=== PATIENT | female | born 1980 | race American Indian/Alaskan Native ===

== ENCOUNTER 2017-04-18 02:48 | Inpatient (IN) | payer OTHER ==
[2017-04-18] MEDS ORDERED: CATAPRES PO ONE (03:17)
[2017-04-18] MEDS ORDERED: ZOFRAN ODT PO ONE (03:17)
[2017-04-18] MEDS ORDERED: NORCO 10/325 PO ONE (03:18)
[2017-04-18 03:34] LABS: Basophils % (Auto) 0.5 % (0.0-1.8); Hematocrit 41.2 % (30.3-42.9); Hemoglobin 13.8 gm/dl (10.1-14.3); Mean Corpuscular HGB Conc 34 % (30-34); Mean Corpuscular Hemoglobin 30 pg (28-32); Mean Corpuscular Volume 89 fl (79-97); Platelet Count 222 K/mm3 (140-440); Red Blood Count 4.62 M/mm3 (3.65-5.03); Red Cell Distribution Width 13.7 % (13.2-15.2); White Blood Count 10.4 K/mm3 (4.5-11.0)
[2017-04-18 04:03] LABS: Anion Gap 22 mmol/L; BUN/Creatinine Ratio 16.66; Blood Urea Nitrogen 10 mg/dL (7-17); Carbon Dioxide 22 mmol/L (22-30); Chloride 96.8 mmol/L (98-107); Glucose 178 mg/dL (65-100); Potassium 3.7 mmol/L (3.6-5.0); Sodium 137 mmol/L (137-145)
[2017-04-18 04:26] LABS: Bacteria,Urine 1+ /HPF (Negative); Bilirubin,Urine NEG (Negative); Blood,Urine NEG (Negative); Ketones,Urine 80 mg/dL (Negative); Leukocyte Esterase,Urine MOD (Negative); Mucus,Urine FEW /HPF; Nitrite,Urine NEG (Negative); Protein,Urine <15 mg/dL mg/dL (Negative); Urobilinogen,Urine < 2.0 mg/dL (<2.0)
--- NOTE | 2017-04-18 08:33 | Emergency Department Report ---
ED Abdominal Pain HPI - General Chief Complaint: Abdominal Pain Stated Complaint: ABD PAIN Time Seen by Provider: 04/18/17 07:52 Source: patient Mode of arrival: Ambulatory Limitations: No Limitations - History of Present Illness Initial Comments: 36-year-old female who presents to emergency department with diffuse abdominal pain. She's had some nausea vomiting. She states that the vomiting appears to be bilious. Pain is diffuse crampy and achy in nature. It does not radiate anywhere. She denies fevers and chills. She's never had any abdominal surgeries. MD Complaint: abdominal pain Location: diffuse, RUQ, RLQ Severity scale (0 -10): 3 Consistency: constant Improves With: nothing Worsens With: eating Associated Symptoms: nausea, vomiting - Related Data Allergies Allergy/AdvReac Type Severity Reaction Status Date / Time No Known Allergies Allergy Verified 04/18/17 07:58 ED Review of Systems ROS: Stated complaint: ABD PAIN Other details as noted in HPI Comment: All other systems reviewed and negative Constitutional: denies: chills, fever Eyes: denies: eye pain, eye discharge, vision change ENT: denies: ear pain, throat pain Respiratory: denies: cough, shortness of breath, wheezing Cardiovascular: denies: chest pain, palpitations Endocrine: no symptoms reported Gastrointestinal: abdominal pain, nausea, vomiting. denies: diarrhea Genitourinary: denies: urgency, dysuria, discharge Musculoskeletal: denies: back pain, joint swelling, arthralgia Skin: denies: rash, lesions Neurological: denies: headache, weakness, paresthesias Psychiatric: denies: anxiety, depression Hematological/Lymphatic: denies: easy bleeding, easy bruising ED Past Medical Hx - Past Medical History Previous Medical History?: No - Surgical History Past Surgical History?: No - Family History Family history: no significant - Social History Smoking Status: Current Some Day Smoker ED Physical Exam - General Limitations: No Limitations General appearance: alert, in no apparent distress - Head Head exam: Present: atraumatic, normocephalic - Eye Eye exam: Present: normal appearance - ENT ENT exam: Present: mucous membranes moist - Neck Neck exam: Present: normal inspection - Respiratory Respiratory exam: Present: normal lung sounds bilaterally. Absent: respiratory distress - Cardiovascular Cardiovascular Exam: Present: regular rate, normal rhythm. Absent: systolic murmur, diastolic murmur, rubs, gallop - GI/Abdominal GI/Abdominal exam: Present: soft, tenderness (diffuse tenderness), guarding ( mild voluntary), normal bowel sounds. Absent: rebound - Extremities Exam Extremities exam: Present: normal inspection - Back Exam Back exam: Present: normal inspection - Neurological Exam Neurological exam: Present: alert, oriented X3 - Psychiatric Psychiatric exam: Present: normal affect, normal mood - Skin Skin exam: Present: warm, dry, intact, normal color. Absent: rash ED Course Vital Signs 04/18/17 04/18/17 04/18/17 02:59 03:26 04:26 Temperature 98.2 F Pulse Rate 60 60 Respiratory 18 20 20 Rate Blood Pressure 200/118 200/118 Blood Pressure [Left] O2 Sat by Pulse 99 Oximetry 04/18/17 04/18/17 04/18/17 07:02 08:30 09:11 Temperature 98.2 F Pulse Rate 65 75 Respiratory 20 16 16 Rate Blood Pressure 147/83 Blood Pressure 204/118 [Left] O2 Sat by Pulse 98 Oximetry 04/18/17 04/18/17 04/18/17 09:41 10:00 10:27 Temperature Pulse Rate 87 Respiratory 16 16 16 Rate Blood Pressure Blood Pressure 146/80 [Left] O2 Sat by Pulse 98 98 Oximetry ED Medical Decision Making - Lab Data Result diagrams: 04/18/17 03:14 04/18/17 03:14 Laboratory Results - last 24 hr 04/18/17 04/18/17 04/18/17 03:14 03:14 03:14 WBC 10.4 RBC 4.62 Hgb 13.8 Hct 41.2 MCV 89 MCH 30 MCHC 34 RDW 13.7 Plt Count 222 Lymph % (Auto) 6.9 L [place] % (Auto) 5.2 Eos % (Auto) 0.0 Baso % (Auto) 0.5 Lymph # 0.7 L [place] # 0.5 Eos # 0.0 Baso # 0.0 Seg Neutrophils % 87.4 H Seg Neutrophils # 9.1 H Sodium 137 Potassium 3.7 Chloride 96.8 L Carbon Dioxide 22 Anion Gap 22 BUN 10 Creatinine 0.6 L Estimated GFR > 60 BUN/Creatinine Ratio 16.66 Glucose 178 H Calcium 9.0 Troponin T < 0.010 Lipase HCG, Qual Negative Urine Color Urine Turbidity Urine pH Ur Specific [place] Urine Protein Urine Glucose (UA) Urine Ketones Urine Blood Urine Nitrite Urine Bilirubin Urine Urobilinogen Ur Leukocyte Esterase Urine WBC (Auto) Urine RBC (Auto) U Epithel Cells (Auto) Urine Bacteria (Auto) Urine Mucus 04/18/17 04/18/17 04/18/17 03:14 03:50 06:55 WBC RBC Hgb Hct MCV MCH MCHC RDW Plt Count Lymph % (Auto) [place] % (Auto) Eos % (Auto) Baso % (Auto) Lymph # [place] # Eos # Baso # Seg Neutrophils % Seg Neutrophils # Sodium Potassium Chloride Carbon Dioxide Anion Gap BUN Creatinine Estimated GFR BUN/Creatinine Ratio Glucose Calcium Troponin T < 0.010 Lipase 13 HCG, Qual Urine Color Straw Urine Turbidity Clear Urine pH 7.0 Ur Specific [place] 1.016 Urine Protein <15 mg/dl Urine Glucose (UA) 50 Urine Ketones 80 Urine Blood Neg Urine Nitrite Neg Urine Bilirubin Neg Urine Urobilinogen < 2.0 Ur Leukocyte Esterase Mod Urine WBC (Auto) 1.0 Urine RBC (Auto) 2.0 U Epithel Cells (Auto) 2.0 Urine Bacteria (Auto) 1+ Urine Mucus Few - Medical Decision Making 36-year-old female presents to the emergency department with diffuse abdominal pain she is morbidly obese. Her exam demonstrated diffuse tenderness with mild voluntary guarding and no rebound. I do not believe she has a surgical abdomen. Her labs are unremarkable this point. Plan is CT given the nature of her pain and the type of her vomiting. Plan to reassess the patient after IV fluids morphine and Zofran. CT scan shows acute appendicitis with a 9 mm appendix with carolann-appendiceal inflammation. Discussed case with Dr. Workman. Will treat with abx and admit. Portions of this chart were dictated with dictation software. There may be dictation errors contained within this note. Critical care attestation.: If time is entered above; I have spent that time in minutes in the direct care of this critically ill patient, excluding procedure time. ED Disposition Clinical Impression: Appendicitis Disposition: OP ADMIT IP TO THIS HOSP Is pt being admited?: Yes Condition: Stable Instructions: Abdominal Pain (ED) Referrals: PRIMARY CARE, [Primary Care Provider] - 3-5 Days
[2017-04-18] MEDS ORDERED: MORPHINE IV ONE ×2 (08:34→11:52)
[2017-04-18] MEDS ORDERED: NACL 0.9% 1000 ML 1,000 ML IV ONE (08:34)
[2017-04-18] MEDS ORDERED: ZOFRAN IV ONE ×2 (08:34→10:49)
--- NOTE | 2017-04-18 10:04 | Cat Scan Report ---
CT scan of abdomen and pelvis with IV contrast: History: Abdominal pain, nausea and vomiting. Findings: Normal lung bases. No pleural or pericardial effusion. Small sliding hernia. Normal liver spleen pancreas and gallbladder. Normal adrenals and kidney parenchyma and bladder. No free intraperitoneal fluid or air. No evidence of adenopathy. Normal aorta. Dilated appendix measuring 9 mm in diameter. Periappendiceal stranding. No abscess. No diverticulitis. Normal terminal ileum. Impression: Finding suggestive of acute appendicitis.
[2017-04-18] MEDS ORDERED: ZOFRAN ONE ×2 (10:50→14:13)
[2017-04-18] MEDS ORDERED: LEVAQUIN 500MG/100ML 500 MG/100 ML BAG IV ONE (11:49)
[2017-04-18] MEDS ORDERED: FLAGYL 500 MG/100 ML 500 MG/100 ML BAG IV ONE (12:00)
[2017-04-18] MEDS ORDERED: XYLOCAINE MPF 2% ONE (14:00)
[2017-04-18] MEDS ORDERED: NEO SYNEPHRINE/NS Syringe(OR USE) IV ONE (14:00)
[2017-04-18] MEDS ORDERED: QUELICIN ONE (14:13)
[2017-04-18] MEDS ORDERED: DECADRON ONE (14:13)
[2017-04-18] MEDS ORDERED: SUBLIMAZE ONE (14:14)
[2017-04-18] MEDS ORDERED: DIPRIVAN 10 MG/ML IV ONE ×2 (14:14→14:51)
[2017-04-18] MEDS ORDERED: VERSED ONE (14:21)
[2017-04-18] MEDS ORDERED: PEPCID IV ONE (14:21)
--- NOTE | 2017-04-18 14:23 | Anesthesia Consultation ---
Anesthesia Consult and Med Hx Date of service: 04/18/17 - Airway Anesthetic Teeth Evaluation: Good ROM Head & Neck: Adequate Mental/Hyoid Distance: Adequate Mallampati Class: Class II Intubation Access Assessment: Good - Pulmonary Exam CTA: Yes - Cardiac Exam Cardiac Exam: No Murmur - Pre-Operative Health Status ASA Pre-Surgery Classification: ASA2 Proposed Anesthetic Plan: General - Pulmonary Hx Smoking: Yes - Other Systems Hx Obesity: Yes
--- NOTE | 2017-04-18 14:23 | Anesthesia Day of Surgery ---
Anesthesia Day of Surgery - Day of Surgery Patient Examined: Yes Patient H&P Reviewed: Yes Patient is NPO: Yes
[2017-04-18] MEDS ORDERED: DILAUDID IV PRN ×2 (14:24→15:56)
[2017-04-18] MEDS ORDERED: NACL 0.9% 1000 ML 1,000 ML ONE ×2 (14:29→16:16)
[2017-04-18] MEDS ORDERED: ZEMURON IV ONE (14:54)
[2017-04-18] MEDS ORDERED: VERSED IV NR (15:00)
[2017-04-18] MEDS ORDERED: PEPCID PO NR (15:00)
[2017-04-18] MEDS ORDERED: ROBINUL ONE ×2 (15:01)
[2017-04-18] MEDS ORDERED: BLOXIVERZ ONE (15:01)
[2017-04-18] MEDS ORDERED: DILAUDID ONE (15:17)
[2017-04-18] MEDS ORDERED: TORADOL ONE (15:33)
[2017-04-18] MEDS ORDERED: ZOSYN/NS 4.5GM/100ML 4.5 GM/100 ML VIAL IV ONE (15:58)
[2017-04-18] MEDS ORDERED: ZOFRAN IV PRN (18:44)
[2017-04-18] MEDS ORDERED: NACL 0.9% 1000 ML 1,000 ML IV SCH (19:00)
[2017-04-18] MEDS: ZOSYN/NS 4.5GM/100ML 4.5 GM/100 ML VIAL IV SCH (19:27)
[2017-04-19] MEDS: ZOSYN/NS 4.5GM/100ML 4.5 GM/100 ML VIAL IV SCH ×2 (00:52→09:33)
--- NOTE | 2017-04-19 02:14 | Operative Report ---
PREOPERATIVE DIAGNOSIS: Acute appendicitis. POSTOPERATIVE DIAGNOSES: Acute appendicitis. Exogenous obesity. SURGERY: Appendectomy, laparoscopic. ANESTHESIA: General. BLOOD LOSS: Minimal. FINDINGS: The patient had severely inflamed appendix without evidence of any perforation. This was done with a scope. DESCRIPTION OF PROCEDURE: With the patient in supine position, prepped and draped in usual fashion. I made a small incision in the mid right upper abdomen with the Veress needle. I was able to do CO2 pressure of 17 following which #5 trocar was inserted. With the use of the camera #5, I was able to introduce two more trocars, 5 in the mid left lower abdomen and 10 in the infraumbilical aspect. With the grasper, I was able to see the cecum. This was pulled medially and the appendix was seen. This was grasped as well and then I used the Endo-BETH #10 to transect and staple the appendix from its base. The same thing to the mesoappendix. We had good hemostasis using irrigation, no evidence of any bleeding. The trocars were removed one by one. I did have the appendix removed via the EndoCatch. Then, after obtaining good hemostasis, the fascia was closed with [id number] stitch of 0 Vicryl and the skin with 4-0 Vicryl and bandages. The patient was then transferred to the recovery room in good condition. JOB# [id number] MAGNO/ROSANNE
--- NOTE | 2017-04-19 07:30 | History and Physical Report ---
HISTORY OF PRESENT ILLNESS: This patient was seen in the ER this morning. She is a 36-year-old black female. She is on the overweight side. She weighs about 180 kilos. She comes because of severe pain to the right mid lower abdomen, nausea, but no vomiting. She was evaluated by our ER physician and she had a CAT scan that showed evidence of appendiceal inflammation with the edema. White count was 3.4, hemoglobin was 13.8, potassium 3.7. With the above-mentioned findings and the localized pain, she was thus taken to the operating room. PHYSICAL EXAMINATION: GENERAL: Showed an obese black female. She is in no distress. She told me where the pain is. HEAD AND NECK: Negative. CHEST: Clear. HEART: Sound normal. ABDOMEN: Showed moderate to severe tenderness in the right mid lower abdomen. EXTREMITIES: Showed no significant edema. IMPRESSION: Acute appendicitis seen on the CAT scan and on physical examination. JOB# [id number] MAGNO/ROSANNE
--- NOTE | 2017-04-19 09:45 | Admit Criteria Form ---
<ANDREA GUILLERMO - Last Filed: 04/19/17 09:41> Admission Criteria Documentation: ABDOMINAL PAIN Clinical Indications for Admission to Inpatient Care ( [place]/check or initial the applicable condition/criteria): Admission is indicated for ANY ONE of the following (1)(2)(3)(4)(5)(6): [ ]I. Surgery needed that cannot be performed on ambulatory basis [ ]II. Peritoneal signs present (eg, rebound tenderness, rigidity) [ ]III. Evaluation requires patient to not eat or drink for extended period ( eg, more than 24 hours). [X]IV. Inpatient admission required[B] rather than observation care (see Abdominal Pain: Observation Care guideline as appropriate) because of ANY ONE of the following(7)(8)(9): [ ] a) Hemodynamic instability [X]b) Severe pain requiring acute inpatient management []c) Identification of etiology or finding that requires inpatient care ( eg, aortic dissection, free air,bowel ischemia)(10) [ ]d) Absent bowel sounds with complete ileus (11) [ ]e) Signs of intestinal obstruction[C] [ ]f) Suspected toxic megacolon [ ]g) Severe electrolyte abnormalities requiring inpatient care [ ]h) High fever or infection requiring inpatient admission as indicated by ANY ONE of the following (12)(13): [ ]i) Appropriate outpatient or observation care antimicrobial treatment unavailable, not effective, or not feasible [ ]ii) Documented bacteremia [ ]iii) Temperature greater than 104.9 degrees F (40.5 degrees C) (oral) [ ]iv) Temperature greater than 103.1 degrees F (39.5 degrees C) ( oral) or less than 96.8 degrees F (36 degrees C) (rectal) that does not respond to all emergency treatment measures [ ]i) IV fluid required rather than oral rehydration to replace significant ongoing (eg, for greater than 24 hours) losses (greater than 3 L/m2 per day)(14)(15) [ ]j) Percutaneous or open drainage (eg, abscess, biliary tract) procedures [ ]k) Parenteral nutrition regimen that must be implemented on inpatient basis [X]l) Other condition, treatment, or monitoring requiring inpatient admission Extended stay beyond goal length of stay may be needed for (1)(3)(4)(10)(16): [ ]a) Surgery (e.g., colectomy, revascularization procedure) [ ]b) Persistent abdominal pain with suspected intra-abdominal process [ ]c) Diagnosed condition requiring continued stay (e.g., pancreatitis, complicated diverticulitis) The original [facility] content created by [facility] has been revised. The portions of the content which have been revised are identified through the use of italic text or in bold, and [facility] has neither reviewed nor approved the modified material.All other unmodified content is copyright [facility]. Please see references footnoted in the original [facility] edition 2017 Admission Criteria Met: Yes <MINA DELGADO - Last Filed: 04/23/17 15:01> Admission Criteria Documentation: I am signing this note administratively. This form was not filled out by me. Admission Criteria Met: Yes
[2017-04-19 13:38] VITALS: BP 133/83
--- NOTE | 2017-04-19 20:34 | Discharge Summary ---
FINAL DIAGNOSIS: Acute appendicitis, pending final pathology report. HOSPITAL COURSE: This patient came to the ER because of severe pain to the right lower quadrant, nausea, but no vomiting. CAT scan showed evidence of thickened appendix and edema and stranding around. She was taken to the operating room where she underwent laparoscopic appendectomy. She did well this morning. I believe she can go home, to see me in my office in about 10 days. She may take extra strength Tylenol 1-2 every 4 hours. To call me if she has any problem, otherwise no driving for good 5 days and diet Ad alexx. We are still waiting for the path report. JOB# [id number] MAGNO/ROSANNE
== END 2017-04-19 13:50 | disposition home or self-care (01) | DRG 342 ==
LOC: ED 02:48 → OR 14:12 → 2B-SURG 15:54
PROVIDERS: ADMIT Surgery; ATTEND Surgery
PROC: 0DTJ4ZZ Resection of Appendix, Percutaneous Endoscopic Approach (ICD-10-PCS; principal; 2017-04-18)
DX: K35.80 Unspecified acute appendicitis (principal); Z68.43 Body mass index [BMI] 50.0-59.9, adult; E66.9 Obesity, unspecified; F17.210 Nicotine dependence, cigarettes, uncomplicated
CPT/HCPCS: 36415; 74177; 80048; 81001; 83690; 84484; 84703; 85025; 88304; 93005; 93010; 96365; 96375; 96376; 99285; 99406; J0330; J1100; J1170; J1885; J1956; J2250; J2270; J2370; J2405; J2543; J2704; J2710; J3010; J7030; Q0162; Q9967